=== PATIENT | male | born 1960 | race Caucasian/White ===

== ENCOUNTER 2020-04-25 17:02 | Emergency (ER) | payer SELFPAY ==
[~2020-04-25] VITALS: Ht 162.6 cm; Wt 80.7 kg
[2020-04-25 17:07] VITALS: BP 144/84; Ht 162.6 cm; Wt 80.7 kg
== END 2020-04-25 17:39 | disposition home or self-care (01) ==
LOC: ED 17:02
DX: B34.9 Viral infection, unspecified (principal); I10 Essential (primary) hypertension; U07.1 COVID-19
CPT/HCPCS: U0003-CS